=== PATIENT | female | born 1975 | race Two or more races ===

== ENCOUNTER 2021-10-03 17:00 | Inpatient (IN) | payer MEDICAID ==
[~2021-10-03] VITALS: Ht 162.6 cm; Wt 60.6 kg
[2021-10-03 17:00] VITALS: BP 112/79
[2021-10-03] MEDS ORDERED: ENOXAPARIN SOD 100 MG/1 ML SYRINGE SC ONE (17:45)
[2021-10-03] MEDS ORDERED: NITROGLYCERIN 0.4 MG SL TAB SL PRN (17:45)
[2021-10-03] MEDS ORDERED: ASPirin 81 mg TAB PO ONE (17:45)
[2021-10-03] MEDS ORDERED: CHOL20009 PO (18:03)
[2021-10-03] MEDS ORDERED: GEMF600T PO (18:03)
[2021-10-03] MEDS ORDERED: OMEP20TA PO (18:03)
[2021-10-03] MEDS ORDERED: CELE200C PO (18:03)
[2021-10-03] MEDS ORDERED: OMEG100062 PO (18:03)
[2021-10-03] MEDS ORDERED: METF-370 PO (18:03)
[2021-10-03] MEDS ORDERED: cefTRIAXone 1GM/50ML D5W 50 ML IV ONE (18:30)
[2021-10-03] MEDS ORDERED: DEXTROSE (50%) 50ML SYRG IV PRN (18:30)
[2021-10-03] MEDS ORDERED: ENOXAPARIN SOD 60 MG/0.6 ML SYRINGE SC ONE (19:00)
[2021-10-03 19:10] LABS: Basophils # (auto) 0 10 ^3/uL (0-0.2); Basophils % (auto) 0.3 % (0.0-2.0); Eosinophils # (auto) 0.5 10 ^3/uL (0-0.8); Eosinophils % (auto) 4.4 % (0.0-7.0); Hematocrit 34.6 % (36.0-46.0); Lymphocytes # (auto) 2.4 10 ^3/uL (0.4-5.4); Lymphocytes % (auto) 23.1 % (10.0-50.0); Mean Corpuscular Hemoglobin 27.7 pg (28.0-32.0); Mean Corpuscular Hgb Conc. 31.8 g/dL (32.0-36.0); Monocytes % (auto) 9.6 % (0.0-12.0); Neutrophils # (auto) 6.6 10 ^3/uL (1.6-8.6); Neutrophils % (auto) 62.6 % (37.0-80.0); Red Blood Cells 3.97 10^6/uL (4.0-5.20); Red Cell Distribution Width 17.2 % (11.8-14.3); White Blood Cell 10.5 10^3/uL (4.4-10.8)
[2021-10-03 19:23] LABS: Albumin 3.2 g/dL (3.4-5.0); Calcium 8.9 mg/dL (8.5-10.1); Potassium 3.7 mmol/L (3.5-5.1)
[2021-10-03 19:26] LABS: BUN/Creatinine Ratio 14.1; Bilirubin, Total 0.4 mg/dL (0.2-1.0)
[2021-10-03 19:28] LABS: Cholesterol 196 mg/dL (< 200); HDL Cholesterol 43 mg/dL (40-59); LDL Cholesterol 147 mg/dL (< 100); Triglycerides 221 mg/dL (< 150)
[2021-10-03 20:00] VITALS: BP 138/83
[2021-10-03] MEDS: ACCU-CHEK COMFORT CURVE STRIP VI SCH (21:22)
[2021-10-03] MEDS: ENOXAPARIN SOD 60 MG/0.6 ML SYRINGE SC SCH (21:32)
[2021-10-03] MEDS ORDERED: ATORVASTATIN 20 MG TAB PO SCH (22:00)
[2021-10-03] MEDS: InsuLIN REG 1unit/0.01ml Soln (100units/ml) SC SCH (22:00)
[2021-10-03] MEDS: MORPHINE SULFATE INJ 2 MG/ml SYRG IV PRN (23:03)
[2021-10-04 05:00] VITALS: BP 141/84
[2021-10-04 05:58] LABS: Basophils # (auto) 0.1 10 ^3/uL (0-0.2); Basophils % (auto) 0.6 % (0.0-2.0); Eosinophils # (auto) 0.6 10 ^3/uL (0-0.8); Hematocrit 34.4 % (36.0-46.0); Hemoglobin 11.2 g/dL (12.2-16.2); Lymphocytes # (auto) 3.1 10 ^3/uL (0.4-5.4); Lymphocytes % (auto) 32.3 % (10.0-50.0); Mean Corpuscular Hemoglobin 28.2 pg (28.0-32.0); Mean Corpuscular Hgb Conc. 32.5 g/dL (32.0-36.0); Mean Corpuscular Volume 86.8 fL (80.0-100.0); Monocytes % (auto) 10.3 % (0.0-12.0); Neutrophils # (auto) 4.9 10 ^3/uL (1.6-8.6); Neutrophils % (auto) 50.8 % (37.0-80.0); Red Blood Cells 3.96 10^6/uL (4.0-5.20); Red Cell Distribution Width 16.6 % (11.8-14.3); White Blood Cell 9.7 10^3/uL (4.4-10.8)
[2021-10-04 06:21] LABS: Potassium 3.8 mmol/L (3.5-5.1)
[2021-10-04 06:22] LABS: Calcium 8.7 mg/dL (8.5-10.1)
[2021-10-04] MEDS: InsuLIN REG 1unit/0.01ml Soln (100units/ml) SC SCH ×3 (06:56→18:12)
[2021-10-04] MEDS: ACCU-CHEK COMFORT CURVE STRIP VI SCH ×3 (06:56→18:12)
[2021-10-04 09:00] VITALS: BP 130/82
[2021-10-04] MEDS ORDERED: cefTRIAXone 1GM/50ML D5W 50 ML IV SCH (09:00)
[2021-10-04] MEDS ORDERED: ASPirin 81 mg TAB PO SCH (10:00)
[2021-10-04] MEDS ORDERED: NICOTINE 21MG/24 HR TOPICAL PATCH TD SCH (10:00)
[2021-10-04] MEDS: ENOXAPARIN SOD 60 MG/0.6 ML SYRINGE SC SCH (10:06)
[2021-10-04] MEDS: MORPHINE SULFATE INJ 2 MG/ml SYRG IV PRN (13:26)
[2021-10-04] MEDS ORDERED: PANTOPRAZOLE 40 MG/10 ML VIAL INJ IV ONE (15:00)
[2021-10-04 19:49] LABS: Alcohol, Urine < 3.0 mg/dL (0-10); Amphetamine Screen, Urine NEGATIVE (NEGATIVE); Barbiturate Scree,Urine NEGATIVE (NEGATIVE); Benzodiazephine Screen, Urine NEGATIVE (NEGATIVE); Cannabinoid Screen, Urine NEGATIVE (NEGATIVE); Cocaine Screen, Urine NEGATIVE (NEGATIVE); Opiate Scree,Urine POSITIVE (NEGATIVE); Phencyclidine Screen, Urine NEGATIVE (NEGATIVE)
[2021-10-04 22:12] LABS: Urine Bacteria NONE SEEN /hpf (None Seen); Urine Blood Negative /uL (Negative); Urine Specific Gravity 1.016 (1.001-1.035); Urine WBC <1 /hpf (0 - 5)
[2021-10-04] MEDS ORDERED: ENOXAPARIN SOD 60 MG/0.6 ML SYRINGE SC ONE (23:07)
[2021-10-04] MEDS ORDERED: NITROGLYCERIN 0.4 MG SL TAB SL ONE (23:08)
[2021-10-04] MEDS ORDERED: ATORVASTATIN 20 MG TAB ONE (23:08)
[2021-10-04] MEDS ORDERED: NITROGLYCERIN 0.4 MG SL TAB SL PRN (23:15)
[2021-10-04] MEDS ORDERED: DEXTROSE (50%) 50ML SYRG IV PRN (23:15)
[2021-10-04] MEDS ORDERED: MORPHINE SULFATE INJ 2 MG/ml SYRG IV PRN (23:15)
[2021-10-05 05:00] VITALS: BP 125/82
[2021-10-05] MEDS: InsuLIN REG 1unit/0.01ml Soln (100units/ml) SC SCH ×4 (06:54→23:57)
[2021-10-05] MEDS: ACCU-CHEK COMFORT CURVE STRIP VI SCH ×4 (06:55→23:55)
[2021-10-05 09:00] VITALS: BP 126/82
[2021-10-05] MEDS: cefTRIAXone 1GM/50ML D5W 50 ML IV SCH (09:42)
[2021-10-05] MEDS: ASPirin 81 mg TAB PO SCH (09:42)
[2021-10-05] MEDS: PANTOPRAZOLE 40 MG/10 ML VIAL INJ IV SCH (09:42)
[2021-10-05] MEDS: ENOXAPARIN SOD 60 MG/0.6 ML SYRINGE SC SCH ×2 (09:43→21:53)
[2021-10-05] MEDS: NICOTINE 21MG/24 HR TOPICAL PATCH TD SCH (09:43)
[2021-10-05] MEDS ORDERED: PANTOPRAZOLE 40 MG/10 ML VIAL INJ IV SCH (10:00)
[2021-10-05 13:00] VITALS: BP 115/65
[2021-10-05 17:00] VITALS: BP 134/93
[2021-10-05] MEDS: ATORVASTATIN 20 MG TAB PO SCH (21:53)
[2021-10-05 22:00] VITALS: BP 136/83
[2021-10-06] VITALS (7 sets, daily range): BP systolic 113–153; BP diastolic 49–84
[2021-10-06] MEDS: ACCU-CHEK COMFORT CURVE STRIP VI SCH ×4 (06:44→21:48)
[2021-10-06] MEDS: InsuLIN REG 1unit/0.01ml Soln (100units/ml) SC SCH ×4 (06:44→21:53)
[2021-10-06 09:18] LABS: Basophils # (auto) 0 10 ^3/uL (0-0.2); Basophils % (auto) 0.5 % (0.0-2.0); Eosinophils # (auto) 0.4 10 ^3/uL (0-0.8); Eosinophils % (auto) 5.4 % (0.0-7.0); Hematocrit 35.5 % (36.0-46.0); Hemoglobin 11.1 g/dL (12.2-16.2); Lymphocytes # (auto) 2.7 10 ^3/uL (0.4-5.4); Lymphocytes % (auto) 37.8 % (10.0-50.0); Mean Corpuscular Hemoglobin 27.5 pg (28.0-32.0); Mean Corpuscular Hgb Conc. 31.4 g/dL (32.0-36.0); Mean Corpuscular Volume 87.7 fL (80.0-100.0); Monocytes # (auto) 0.8 10 ^3/uL (0-1.3); Monocytes % (auto) 11.5 % (0.0-12.0); Neutrophils # (auto) 3.2 10 ^3/uL (1.6-8.6); Neutrophils % (auto) 44.8 % (37.0-80.0); Nucleated Red Blood Cells % 0.1 %; Red Blood Cells 4.04 10^6/uL (4.0-5.20); Red Cell Distribution Width 16.9 % (11.8-14.3); White Blood Cell 7.1 10^3/uL (4.4-10.8)
[2021-10-06 09:38] LABS: INR 0.98 (0.9-1.15); Partial Thromboplastin Time 26.8 sec (24.6-33.4)
[2021-10-06 09:40] LABS: Albumin 3.2 g/dL (3.4-5.0); Potassium 3.7 mmol/L (3.5-5.1)
[2021-10-06 09:44] LABS: BUN/Creatinine Ratio 17.6; Bilirubin, Total 0.3 mg/dL (0.2-1.0); Total Protein 7.1 g/dL (6.4-8.2)
[2021-10-06] MEDS: ENOXAPARIN SOD 60 MG/0.6 ML SYRINGE SC SCH ×2 (09:44→21:48)
[2021-10-06] MEDS: cefTRIAXone 1GM/50ML D5W 50 ML IV SCH (09:55)
[2021-10-06] MEDS: PANTOPRAZOLE 40 MG/10 ML VIAL INJ IV SCH (09:56)
[2021-10-06] MEDS: ASPirin 81 mg TAB PO SCH (09:56)
[2021-10-06] MEDS: NICOTINE 21MG/24 HR TOPICAL PATCH TD SCH (09:56)
[2021-10-06] MEDS ORDERED: MIDAZOLAM HCL 2MG/2ML 2ml VIAL (1mg/ml) ONE (15:52)
[2021-10-06] MEDS ORDERED: SODIUM CHL 0.9% 0 ML ONE (15:52)
[2021-10-06] MEDS ORDERED: ANGIOMAX 250 MG VIAL IV ONE (15:52)
[2021-10-06] MEDS ORDERED: VERAPAMIL 2.5MG/ML INJ 2ML VIAL IV ONE (15:52)
[2021-10-06] MEDS ORDERED: fentaNYL CITRATE 100 MCG/2 ML VL ONE (15:52)
[2021-10-06] MEDS ORDERED: HEPARIN SODIUM (PORCINE) 5000 UNITS/ML 1ML VIAL ONE (15:52)
[2021-10-06] MEDS ORDERED: LIDOCAINE 2%HCL (LOCAL ANESTH.) INJ 20ML MDV ONE (15:53)
[2021-10-06] MEDS ORDERED: IODIXANOL 320MG/ML 100ML BTL IV ONE (15:55)
[2021-10-06] MEDS: ATORVASTATIN 20 MG TAB PO SCH (21:48)
[2021-10-07 05:00] VITALS: BP 115/70
[2021-10-07] MEDS ORDERED: HYDROcodone-ACET 7.5/325MG TAB PO ONE (06:00)
[2021-10-07] MEDS: InsuLIN REG 1unit/0.01ml Soln (100units/ml) SC SCH (06:11)
[2021-10-07] MEDS: ACCU-CHEK COMFORT CURVE STRIP VI SCH (06:11)
[2021-10-07 09:00] VITALS: BP 99/64
[2021-10-07] MEDS: NICOTINE 21MG/24 HR TOPICAL PATCH TD SCH ×2 (09:16→09:21)
[2021-10-07] MEDS: cefTRIAXone 1GM/50ML D5W 50 ML IV SCH (09:17)
[2021-10-07] MEDS: PANTOPRAZOLE 40 MG/10 ML VIAL INJ IV SCH (09:18)
[2021-10-07] MEDS: ASPirin 81 mg TAB PO SCH (09:18)
[2021-10-07] MEDS ORDERED: ASPI-498 PO (09:22)
[2021-10-07] MEDS ORDERED: ATO40T PO (09:22)
[2021-10-07 10:15] VITALS: BP 130/75
== END 2021-10-07 11:30 | disposition home or self-care (01) | DRG 190 ==
LOC: TELE-EAST 17:00
PROVIDERS: ADMIT Internal Medicine; ATTEND Family Medicine
PROC: 4A023N7 Measurement of Cardiac Sampling and Pressure, Left Heart, Percutaneous Approach (ICD-10-PCS; principal; 2021-10-06)
PROC: B211YZZ Fluoroscopy of Multiple Coronary Arteries using Other Contrast (ICD-10-PCS; 2021-10-06)
PROC: B215YZZ Fluoroscopy of Left Heart using Other Contrast (ICD-10-PCS; 2021-10-06)
DX: I21.4 Non-ST elevation (NSTEMI) myocardial infarction (principal); E44.1 Mild protein-calorie malnutrition; E11.9 Type 2 diabetes mellitus without complications; E78.5 Hyperlipidemia, unspecified; F41.9 Anxiety disorder, unspecified; J45.909 Unspecified asthma, uncomplicated; N39.0 Urinary tract infection, site not specified; Z20.822 Contact with and (suspected) exposure to COVID-19; I25.10 Atherosclerotic heart disease of native coronary artery without angina pectoris; F17.210 Nicotine dependence, cigarettes, uncomplicated; Z82.49 Family history of ischemic heart disease and other diseases of the circulatory system; Z71.6 Tobacco abuse counseling; Z68.22 Body mass index [BMI] 22.0-22.9, adult
CPT/HCPCS: 36415; 80048; 80053; 80061; 80307; 81001; 81025; 82962; 83036; 84443; 84484; 85025; 85610; 85730; 87081; 87086; 93306; 99152; C9113; G0378; J0696; J1815; J2250; Q9967